=== PATIENT | male | born 1990 | race African-American/Black ===

== ENCOUNTER 2017-05-18 11:26 | Emergency (ER) | payer SELFPAY ==
[~2017-05-18] VITALS: Ht 185.4 cm; Wt 89.5 kg
[2017-05-18 11:39] VITALS: BP 135/86
[2017-05-18 13:38] LABS: INFLUENZA A NEGATIVE; INFLUENZA B NEGATIVE
[2017-05-18 13:49] VITALS: PULSE 96; TEMP 99.2
== END 2017-05-18 13:50 | disposition home or self-care (01) ==
LOC: COL.ER 11:26
PROVIDERS: Nurse Practitioner Primary Care
DX: J06.9 Acute upper respiratory infection, unspecified (principal)

== ENCOUNTER 2017-05-25 10:40 | Emergency (ER) | payer SELFPAY ==
[~2017-05-25] VITALS: Ht 185.4 cm; Wt 89.5 kg
[2017-05-25] MEDS ORDERED: ZITHROMAX Z PA250 MG PO (12:23)
[2017-05-25 12:53] VITALS: BP 127/78; PULSE 73; TEMP 97.6
== END 2017-05-25 12:54 | disposition home or self-care (01) ==
LOC: COL.ER 10:40
DX: J40 Bronchitis, not specified as acute or chronic (principal); R09.1 Pleurisy; F17.210 Nicotine dependence, cigarettes, uncomplicated; F12.90 Cannabis use, unspecified, uncomplicated
CPT/HCPCS: A9284

== ENCOUNTER 2017-06-09 18:07 | Emergency (ER) | payer SELFPAY ==
[~2017-06-09] VITALS: Ht 185.4 cm; Wt 89.1 kg
[~2017-06-09 18:07] MED LIST: ZITHROMAX Z PA250 MG PO
[2017-06-09 18:15] VITALS: BP 124/76; PULSE 74; TEMP 99
== END 2017-06-09 21:04 | disposition home or self-care (01) ==
LOC: COL.ER 18:07
DX: Z20.2 Contact with and (suspected) exposure to infections with a predominantly sexual mode of transmission (principal); J45.909 Unspecified asthma, uncomplicated; F17.210 Nicotine dependence, cigarettes, uncomplicated; F12.90 Cannabis use, unspecified, uncomplicated
CPT/HCPCS: J0696

== ENCOUNTER 2017-06-14 18:22 | Emergency (ER) | payer SELFPAY ==
[~2017-06-14] VITALS: Ht 185.4 cm; Wt 89.1 kg
[2017-06-14 18:24] VITALS: BP 121/70; TEMP 99.8
[2017-06-14] MEDS ORDERED: TAMIFLU 75MG75 MG PO (21:22)
[2017-06-14 21:39] VITALS: PULSE 90
== END 2017-06-14 21:39 | disposition home or self-care (01) ==
LOC: COL.ER 18:22
DX: J11.1 Influenza due to unidentified influenza virus with other respiratory manifestations (principal); F12.10 Cannabis abuse, uncomplicated; F17.210 Nicotine dependence, cigarettes, uncomplicated; Z87.09 Personal history of other diseases of the respiratory system

== ENCOUNTER 2017-11-08 21:39 | Emergency (ER) | payer SELFPAY ==
[~2017-11-08] VITALS: Ht 188 cm; Wt 89.1 kg
[~2017-11-08 21:39] MED LIST changes: +TAMIFLU 75MG75 MG PO
[2017-11-08 21:56] VITALS: TEMP 98
[2017-11-08 22:55] LABS: BASO % 0.4 % (0.0-2.0); EOS # 0.1 (0.0-0.7); EOS % 2.5 % (0-4.0); GRAN # 2.2 (1.4-6.5); GRAN % 42.2 % (42.2-75.2); HEMATOCRIT 42.1 % (42.0-52.0); HEMOGLOBIN 14.7 g/dl (13.5-18.0); LYMPH # 2.4 (1.2-3.4); LYMPH % 47.1 % (20.0-51.0); MEAN CELL VOLUME 91 fl (80.0-100.0); MEAN CORPUSCULAR HEMOGLOBIN 32 pg (27.0-31.0); MEAN CORPUSCULAR HGB CONC 35 g/dl (33.0-37.0); MEAN PLATELET VOLUME 11.1 fl (7.4-10.4); MONO # 0.4 (0.1-0.6); MONO % 7.6 % (1.7-9.3); PLATELET COUNT 136 K/mm3 (130-400); RED BLOOD COUNT 4.63 M/mm3 (4.20-5.60); REDCELL DISTRIBUTION WIDTH-CV 12.6 % (11.5-14.5)
[2017-11-08 23:15] LABS: ALBUMIN 3.9 gm/dL (3.5-5.0); BILIRUBIN,TOTAL 0.4 mg/dL (0.0-1.0); C-REACTIVE PROTEIN 0.6 mg/dL (0.0-0.9); CALCIUM 9.1 mg/dL (8.4-10.2); CREATININE, serum 1.13 mg/dL (0.66-1.25); POTASSIUM 3.3 mmol/L (3.4-5.0); TOTAL PROTEIN 6.4 gm/dL (6.4-8.2)
[2017-11-08 23:22] LABS: COLLECTION METHOD CLEAN CATCH
[2017-11-08 23:29] LABS: MUCOUS Present /lpf; PH 6 (5-8); SQUAMOUS EPITHELIAL 0-2 /hpf; URINE APPEARANCE Clear; URINE BACTERIA None Seen /hpf; URINE BILIRUBIN Negative (NEGATIVE); URINE BLOOD Negative (NEGATIVE); URINE COLOR Yellow; URINE GLUCOSE Negative (NEGATIVE); URINE KETONE Negative (NEGATIVE); URINE LEUKOCYTE ESTERASE Negative (NEGATIVE); URINE NITRATE Negative (NEGATIVE); URINE PROTEIN(semi-quant) Negative (NEGATIVE)
[2017-11-08] MEDS ORDERED: ZOFRAN ODT4 MG PO (23:41)
[2017-11-08 23:53] VITALS: BP 115/60; PULSE 70
== END 2017-11-08 23:54 | disposition home or self-care (01) ==
LOC: COL.ER 21:39
PROVIDERS: Physician Assistant
DX: R11.0 Nausea (principal); F12.10 Cannabis abuse, uncomplicated; R10.9 Unspecified abdominal pain
CPT/HCPCS: J2405; J7030

== ENCOUNTER 2017-11-09 16:03 | Emergency (ER) | payer SELFPAY ==
[~2017-11-09] VITALS: Ht 188 cm; Wt 89.1 kg
[~2017-11-09 16:03] MED LIST changes: +ZOFRAN ODT4 MG PO
[2017-11-09 16:20] VITALS: BP 110/64; PULSE 63; TEMP 97.6
== END 2017-11-09 16:45 | disposition left against medical advice (07) ==
LOC: COL.ER 16:03
DX: R10.9 Unspecified abdominal pain (principal)

== ENCOUNTER 2017-11-10 09:22 | Emergency (ER) | payer SELFPAY ==
[~2017-11-10] VITALS: Ht 188 cm; Wt 84.5 kg
[2017-11-10 09:24] VITALS: TEMP 98.1
[2017-11-10 10:01] LABS: BASO % 0.8 % (0.0-2.0); EOS # 0.1 (0.0-0.7); EOS % 2.8 % (0-4.0); GRAN # 1.8 (1.4-6.5); GRAN % 50.1 % (42.2-75.2); HEMATOCRIT 43.2 % (42.0-52.0); HEMOGLOBIN 14.9 g/dl (13.5-18.0); LYMPH # 1.4 (1.2-3.4); LYMPH % 37.7 % (20.0-51.0); MEAN CELL VOLUME 92 fl (80.0-100.0); MEAN CORPUSCULAR HEMOGLOBIN 32 pg (27.0-31.0); MEAN CORPUSCULAR HGB CONC 35 g/dl (33.0-37.0); MONO # 0.3 (0.1-0.6); MONO % 8.3 % (1.7-9.3); PLATELET COUNT 127 K/mm3 (130-400); RED BLOOD COUNT 4.68 M/mm3 (4.20-5.60); REDCELL DISTRIBUTION WIDTH-CV 12.8 % (11.5-14.5)
[2017-11-10 10:11] LABS: ALBUMIN 3.8 gm/dL (3.5-5.0); BILIRUBIN,TOTAL 0.3 mg/dL (0.0-1.0); C-REACTIVE PROTEIN 0.6 mg/dL (0.0-0.9); CALCIUM 9.3 mg/dL (8.4-10.2); CREATININE, serum 1.2 mg/dL (0.66-1.25); POTASSIUM 4.1 mmol/L (3.4-5.0); TOTAL PROTEIN 6.5 gm/dL (6.4-8.2)
[2017-11-10 10:54] LABS: COLLECTION METHOD CLEAN CATCH
[2017-11-10 11:04] LABS: MUCOUS Present /lpf; PH 7 (5-8); SQUAMOUS EPITHELIAL 0-2 /hpf; URINE APPEARANCE Clear; URINE BACTERIA Rare /hpf; URINE BILIRUBIN Negative (NEGATIVE); URINE BLOOD Negative (NEGATIVE); URINE COLOR Yellow; URINE GLUCOSE Negative (NEGATIVE); URINE KETONE Negative (NEGATIVE); URINE LEUKOCYTE ESTERASE Negative (NEGATIVE); URINE NITRATE Negative (NEGATIVE); URINE PROTEIN(semi-quant) Negative (NEGATIVE); URINE RBC 0-2 /hpf; URINE UROBILINOGEN Negative (NEGATIVE)
[2017-11-10 11:47] VITALS: BP 125/90; PULSE 68
== END 2017-11-10 11:48 | disposition home or self-care (01) ==
LOC: COL.ER 09:22
PROVIDERS: Emergency Medicine
DX: K43.9 Ventral hernia without obstruction or gangrene (principal); F17.210 Nicotine dependence, cigarettes, uncomplicated; F12.90 Cannabis use, unspecified, uncomplicated

== ENCOUNTER 2018-01-09 23:54 | Emergency (ER) | payer SELFPAY ==
[~2018-01-09] VITALS: Ht 185.4 cm; Wt 77.3 kg
[2018-01-09 23:59] VITALS: TEMP 97.4
[2018-01-10 00:45] LABS: BASO % 0.3 % (0.0-2.0); EOS % 0.1 % (0-4.0); GRAN # 6.4 (1.4-6.5); GRAN % 81.2 % (42.2-75.2); HEMATOCRIT 48.3 % (42.0-52.0); HEMOGLOBIN 16.9 g/dl (13.5-18.0); LYMPH # 1.2 (1.2-3.4); MEAN CELL VOLUME 91 fl (80.0-100.0); MEAN CORPUSCULAR HEMOGLOBIN 32 pg (27.0-31.0); MEAN CORPUSCULAR HGB CONC 35 g/dl (33.0-37.0); MONO # 0.2 (0.1-0.6); MONO % 3.1 % (1.7-9.3); PLATELET COUNT 171 K/mm3 (130-400); RED BLOOD COUNT 5.33 M/mm3 (4.20-5.60); REDCELL DISTRIBUTION WIDTH-CV 12.7 % (11.5-14.5)
[2018-01-10 00:50] LABS: ALANINE AMINOTRANSFERASE 29 U/L (21-72); ALBUMIN 4.7 gm/dL (3.5-5.0); ALKALINE PHOSPHATASE 65 U/L (50-136); ANION GAP 12 mmol/L (7-16); AST,SGOT 30 U/L (15-37); BILIRUBIN,TOTAL 0.8 mg/dL (0.0-1.0); BLOOD UREA NITROGEN 7 mg/dL (9-20); CALCIUM 10.1 mg/dL (8.4-10.2); CARBON DIOXIDE 23 mmol/L (22-30); CHLORIDE 100 mmol/L (98-107); CREATININE, serum 1.05 mg/dL (0.66-1.25); GLUCOSE 141 mg/dL (74-106); LIPASE 57 U/L (23-300); MAGNESIUM 1.8 mg/dL (1.6-2.3); POTASSIUM 3.8 mmol/L (3.4-5.0); SODIUM 136 mmol/L (137-145)
[2018-01-10 00:53] LABS: ACETAMINOPHEN < 10 ug/mL (10-30); ALCOHOL(ethanol),MEDICAL < 10 mg/dL; SALICYLATE < 1.0 mg/dL
[2018-01-10 02:40] VITALS: BP 155/97; PULSE 54
== END 2018-01-10 02:49 | disposition home or self-care (01) ==
LOC: COL.ER 23:54
PROVIDERS: Emergency Medicine
DX: T43.621A Poisoning by amphetamines, accidental (unintentional), initial encounter (principal); J45.909 Unspecified asthma, uncomplicated
CPT/HCPCS: J1200; J1885; J2405; J7030

== ENCOUNTER 2018-12-14 06:13 | Emergency (ER) | payer SELFPAY ==
[~2018-12-14] VITALS: Ht 185.4 cm; Wt 75.0 kg
[2018-12-14 06:17] VITALS: BP 115/69; TEMP 98
[2018-12-14] MEDS ORDERED: MEDROL 4MG DOSPA4 MG PO (06:59)
[2018-12-14 07:05] LABS: BASO % 0.7 % (0.0-2.0); EOS # 0.2 (0.0-0.7); EOS % 4.8 % (0-4.0); GRAN % 44.4 % (42.2-75.2); HEMATOCRIT 46.6 % (42.0-52.0); LYMPH # 1.9 (1.2-3.4); LYMPH % 41.1 % (20.0-51.0); MEAN CELL VOLUME 93 fl (80.0-100.0); MEAN CORPUSCULAR HEMOGLOBIN 32 pg (27.0-31.0); MEAN CORPUSCULAR HGB CONC 34 g/dl (33.0-37.0); MEAN PLATELET VOLUME 10.7 fl (7.4-10.4); MONO # 0.4 (0.1-0.6); MONO % 8.8 % (1.7-9.3); PLATELET COUNT 149 K/mm3 (130-400); RED BLOOD COUNT 5.03 M/mm3 (4.20-5.60); REDCELL DISTRIBUTION WIDTH-CV 12.6 % (11.5-14.5)
[2018-12-14 07:12] LABS: ALANINE AMINOTRANSFERASE 19 U/L (21-72); ALBUMIN 4.2 gm/dL (3.5-5.0); ALKALINE PHOSPHATASE 64 U/L (50-136); ANION GAP 8 mmol/L (7-16); AST,SGOT 35 U/L (15-37); BILIRUBIN,TOTAL 0.7 mg/dL (0.0-1.0); BLOOD UREA NITROGEN 12 mg/dL (9-20); CALCIUM 9.6 mg/dL (8.4-10.2); CARBON DIOXIDE 29 mmol/L (22-30); CHLORIDE 105 mmol/L (98-107); GLUCOSE 85 mg/dL (74-106); POTASSIUM 3.8 mmol/L (3.4-5.0); SODIUM 142 mmol/L (137-145); TOTAL PROTEIN 7.1 gm/dL (6.4-8.2)
[2018-12-14 07:24] LABS: TROPONIN-I < 0.012 ng/mL (0.000-0.035)
[2018-12-14 07:37] LABS: HIV 1/2 Antibodies Non-Reactive; HIV-1p24 Antigen Non-Reactive
[2018-12-14] MEDS ORDERED: VENTOLIN0.09 MG IH (08:02)
[2018-12-14] MEDS ORDERED: TESSALON P100 MG/CAP PO (08:03)
[2018-12-14 08:20] VITALS: PULSE 89
== END 2018-12-14 08:20 | disposition home or self-care (01) ==
LOC: COL.ER 06:13
PROVIDERS: Emergency Medicine
DX: R07.89 Other chest pain (principal); R05 Cough; F17.210 Nicotine dependence, cigarettes, uncomplicated; F12.90 Cannabis use, unspecified, uncomplicated; G43.909 Migraine, unspecified, not intractable, without status migrainosus
CPT/HCPCS: J1885

== ENCOUNTER 2019-11-26 11:54 | Emergency (ER) | payer SELFPAY ==
[~2019-11-26] VITALS: Ht 182.9 cm; Wt 86.4 kg
[~2019-11-26 11:54] MED LIST changes: +MEDROL 4MG DOSPA4 MG PO; +TESSALON P100 MG/CAP PO; +VENTOLIN0.09 MG IH
[2019-11-26 12:14] VITALS: TEMP 98.5
[2019-11-26] MEDS ORDERED: FLEXERIL 1010 MG/TAB PO (13:58)
[2019-11-26 14:58] VITALS: BP 117/80; PULSE 60
== END 2019-11-26 15:00 | disposition home or self-care (01) ==
LOC: COL.ER 11:54
DX: R10.84 Generalized abdominal pain (principal)
CPT/HCPCS: J0696; J1885

== ENCOUNTER → 2019-12-12 | Outpatient (CLI) | payer SELFPAY ==
[~2019-12-12] MED LIST changes: +FLEXERIL 1010 MG/TAB PO; +NORCO 325 MG-51 TAB PO
== END ==
LOC: COL.LAB 08:00
DX: Z20.828 Contact with and (suspected) exposure to other viral communicable diseases (principal)

== ENCOUNTER 2019-12-18 10:14 | Day surgery (SDC) | payer SELFPAY ==
[~2019-12-18] VITALS: Ht 185.4 cm; Wt 87.0 kg
[~2019-12-18 10:14] MED LIST changes: -NORCO 325 MG-51 TAB PO
[2019-12-18 11:34] VITALS: BP 112/66; PULSE 72; TEMP 98.3
[2019-12-18] MEDS ORDERED: NORCO 325 MG-51 TAB PO (13:49)
[2019-12-18 13:53] VITALS: BP 105/73; PULSE 56; TEMP 97.2
--- NOTE | 2019-12-18 13:53 | NUR ---
Pt to [facility] via cart from [place]. Pt drowsy, but awake. Denies pain or nausea. Incision to abdomen is clean, dry and has canchola set intact. Pt quickly falls back to sleep when not engaged in conversation. Side rails up x2. Call light within reach.
[2019-12-18 14:00] VITALS: BP 106/68; PULSE 48
--- NOTE | 2019-12-18 14:00 | NUR ---
Pt continues to rest. Dozing on and off. Denies pain or nausea. Call light within reach.
[2019-12-18 14:15] VITALS: BP 103/65; PULSE 44
--- NOTE | 2019-12-18 14:15 | NUR ---
Pt awake. Muffin and juice given per pt request. Pt HOB elevated. Will continue to montior.
[2019-12-18 14:30] VITALS: BP 101/69; PULSE 52
--- NOTE | 2019-12-18 14:30 | NUR ---
Pt continues to rest. Tolerating food and fluids without difficulties. Denies needs. Call light within reach.
--- NOTE | 2019-12-18 14:45 | NUR ---
Pt up to restroom with stand by assistance. Gait steady. Pt voids without diffiuclties. Pt back to room. More muffin and juice given per pt request.
--- NOTE | 2019-12-18 15:10 | NUR ---
Discharge instructions reviewed. Pt voices understanding. IV site discontinued with all parts intact. Pt up to dress. Call light within reach.
--- NOTE | 2019-12-18 15:20 | NUR ---
Pt escorted to private car via wheel chair. Pt accompanied home by his significant other.
== END 2019-12-18 15:20 | disposition home or self-care (01) ==
LOC: SDCO 10:14
DX: J45.909 Unspecified asthma, uncomplicated (principal); K43.9 Ventral hernia without obstruction or gangrene; F17.210 Nicotine dependence, cigarettes, uncomplicated; Z79.899 Other long term (current) drug therapy
CPT/HCPCS: C1781; J0690; J1885; J2250; J2405; J2704; J3010; J7120

== ENCOUNTER 2019-12-19 07:05 | Emergency (ER) | payer SELFPAY ==
[~2019-12-19] VITALS: Ht 185.4 cm; Wt 86.4 kg
[~2019-12-19 07:05] MED LIST changes: +NORCO 325 MG-51 TAB PO
[2019-12-19 07:08] VITALS: TEMP 97.8
[2019-12-19 07:39] LABS: ALBUMIN 3.8 gm/dL (3.5-5.0); BILIRUBIN,TOTAL 0.5 mg/dL (0.0-1.0); C-REACTIVE PROTEIN 1.1 mg/dL (0.0-0.9); CREATININE, serum 1.32 (0.66-1.25); POTASSIUM 3.9 mmol/L (3.4-5.0); TOTAL PROTEIN 6.6 gm/dL (6.4-8.2)
[2019-12-19 07:50] LABS: BASO % 0.3 % (0.0-2.0); EOS # 0.3 (0.0-0.7); EOS % 4.9 % (0-4.0); GRAN # 3.2 (1.4-6.5); GRAN % 53.7 % (42.2-75.2); HEMATOCRIT 44.3 % (42.0-52.0); LYMPH # 1.9 (1.2-3.4); LYMPH % 32.9 % (20.0-51.0); MEAN CELL VOLUME 94 fl (80.0-100.0); MEAN CORPUSCULAR HEMOGLOBIN 32 pg (27.0-31.0); MEAN CORPUSCULAR HGB CONC 34 g/dl (33.0-37.0); MEAN PLATELET VOLUME 11.5 fl (7.4-10.4); MONO # 0.5 (0.1-0.6); PLATELET COUNT 132 K/mm3 (130-400); RED BLOOD COUNT 4.71 M/mm3 (4.20-5.60); REDCELL DISTRIBUTION WIDTH-CV 12.8 % (11.5-14.5)
[2019-12-19 09:37] VITALS: BP 95/71; PULSE 59
== END 2019-12-19 09:42 | disposition home or self-care (01) ==
LOC: COL.ER 07:05
PROVIDERS: Emergency Medicine
DX: R10.9 Unspecified abdominal pain (principal)
CPT/HCPCS: J1885; J2270; J2405; J7030

== ENCOUNTER 2020-09-25 19:14 | Emergency (ER) | payer SELFPAY ==
[~2020-09-25] VITALS: Ht 185.4 cm; Wt 90.9 kg
[2020-09-25 20:06] LABS: EOS # 0.1 (0.0-0.7); EOS % 3.9 % (0-4.0); GRAN # 1.1 (1.4-6.5); GRAN % 31.6 % (42.2-75.2); HEMATOCRIT 48.1 % (42.0-52.0); HEMOGLOBIN 15.9 g/dl (13.5-18.0); LYMPH # 1.9 (1.2-3.4); LYMPH % 54.1 % (20.0-51.0); MEAN CELL VOLUME 91 fl (80.0-100.0); MEAN CORPUSCULAR HEMOGLOBIN 30 pg (27.0-31.0); MEAN CORPUSCULAR HGB CONC 33 g/dl (33.0-37.0); MEAN PLATELET VOLUME 10.4 fl (7.4-10.4); MONO # 0.4 (0.1-0.6); MONO % 10.1 % (1.7-9.3); PLATELET COUNT 158 K/mm3 (130-400); RED BLOOD COUNT 5.29 M/mm3 (4.20-5.60); REDCELL DISTRIBUTION WIDTH-CV 14.4 % (11.5-14.5)
[2020-09-25 20:26] LABS: ALANINE AMINOTRANSFERASE 25 U/L (4-49); ALBUMIN 4.1 gm/dL (3.5-5.0); ALKALINE PHOSPHATASE 62 U/L (50-136); ANION GAP 5 mmol/L (7-16); AST,SGOT 37 U/L (15-37); BILIRUBIN,TOTAL 0.4 mg/dL (0.0-1.0); BLOOD UREA NITROGEN 10 mg/dL (9-20); CARBON DIOXIDE 28 mmol/L (22-30); CHLORIDE 107 mmol/L (98-107); GLUCOSE 85 mg/dL (74-106); POTASSIUM 4.1 mmol/L (3.4-5.0); SODIUM 140 mmol/L (137-145); TOTAL PROTEIN 7.4 gm/dL (6.4-8.2)
[2020-09-25 20:34] LABS: C-REACTIVE PROTEIN < 0.5 mg/dL (0.0-0.9)
[2020-09-25 20:59] VITALS: BP 118/78; PULSE 72; TEMP 98.2
== END 2020-09-25 20:59 | disposition home or self-care (01) ==
LOC: COL.ER 19:14
PROVIDERS: Nurse Practitioner Primary Care
DX: J06.9 Acute upper respiratory infection, unspecified (principal); J45.909 Unspecified asthma, uncomplicated; F17.210 Nicotine dependence, cigarettes, uncomplicated

== ENCOUNTER → 2021-12-16 | Outpatient (CLI) | payer OTHER | LOC: COL.RAD 15:26 | DX: N50.819 Testicular pain, unspecified (principal) ==